=== PATIENT | female | born 1940 | race Caucasian/White ===

== ENCOUNTER 2017-11-08 11:54 | Emergency (ER) | payer MEDICARE, BC ==
[~2017-11-08] VITALS: Ht 167.6 cm; Wt 77.6 kg
[~2017-11-08 11:54] MED LIST: BIOTIN PO; CALTRATE 600 W1 EACH PO; CENTRUM SILVER1 EAC4 PO; CYMBALTA60 MG PO; LEFLUNOMIDE10 MG PO; LEVOTHYROXINE50 MCG PO; LORAZEPAM0.5 MG PO; MS CONTIN30 MG; MYRBETRIQ50 MG PO; NEXIUM40 MG PO; OCUVITE TABLET1 EAC1 PO; ORENCIA125 MG/1 M; PREMARIN42.5 GM VG; RESTASIS1 EACH OU; XARELTO20 MG PO
== END 2017-11-08 13:32 | disposition home or self-care (01) ==
LOC: FSED 11:54
DX: N30.90 Cystitis, unspecified without hematuria (principal); E03.9 Hypothyroidism, unspecified; R03.0 Elevated blood-pressure reading, without diagnosis of hypertension; E78.5 Hyperlipidemia, unspecified
CPT/HCPCS: 81003; 87086; 87186; 99283

== ENCOUNTER 2017-12-16 13:32 | Emergency (ER) | payer MEDICARE, BC ==
[~2017-12-16] VITALS: Ht 167.6 cm; Wt 90.7 kg
[2017-12-16] MEDS ORDERED: SERTRALINE HCL50 MG PO (14:32)
[2017-12-16] MEDS ORDERED: LIPITOR20 MG (14:35)
[2017-12-16] MEDS ORDERED: MELOXICAM7.5 MG PO (14:36)
[2017-12-16] MEDS ORDERED: ALENDRONATE SOD70 MG (14:37)
[2017-12-16] MEDS ORDERED: LEFLUNOMIDE10 MG (14:38)
[2017-12-16] MEDS ORDERED: NORCO 10-325 T1 EACH (14:39)
[2017-12-16] MEDS ORDERED: ENOXAPARIN40 MG/0.4 SC (14:40)
[2017-12-16] MEDS ORDERED: GABAPENTIN300 MG PO (14:40)
[2017-12-16 15:39] VITALS: BP 142/82
== END 2017-12-16 15:40 | disposition home or self-care (01) ==
LOC: FSED 13:32
DX: R30.0 Dysuria (principal); E03.1 Congenital hypothyroidism without goiter; F03.90 Unspecified dementia, unspecified severity, without behavioral disturbance, psychotic disturbance, mood disturbance, and anxiety
CPT/HCPCS: 81003; 82553; 84484; 85025; 93005; 99282

== ENCOUNTER 2018-02-24 13:08 | Emergency (ER) | payer MEDICARE, BC ==
[~2018-02-24] VITALS: Ht 167.6 cm; Wt 90.7 kg
[~2018-02-24 13:08] MED LIST changes: +ALENDRONATE SOD70 MG; +ENOXAPARIN40 MG/0.4 SC; +GABAPENTIN300 MG PO; +LEFLUNOMIDE10 MG; +LIPITOR20 MG; +MELOXICAM7.5 MG PO; +NORCO 10-325 T1 EACH; +SERTRALINE HCL50 MG PO
[2018-02-24 14:13] VITALS: BP 168/73
== END 2018-02-24 14:16 | disposition home or self-care (01) ==
LOC: FSED 13:08
DX: N76.0 Acute vaginitis (principal)
CPT/HCPCS: 99283

== ENCOUNTER 2018-03-09 14:04 | Emergency (ER) | payer MEDICARE, BC | END 2018-03-09 16:14 | disposition short-term general hospital (02) | LOC: ER 14:04 | DX: R50.9 Fever, unspecified (principal) ==

== ENCOUNTER 2021-04-12 09:29 | Emergency (ER) | payer MEDICARE, BC ==
[~2021-04-12] VITALS: Ht 167.6 cm; Wt 72.6 kg
[2021-04-12] MEDS ORDERED: CEFDINIR300 MG PO (10:21)
[2021-04-12] MEDS ORDERED: CEFTRIAXONE 1 GM VIAL IM ONE (10:30)
[2021-04-12] MEDS ORDERED: LIDOCAINE HCL 1% LOCAL INJ 20 ML VIAL ONE (10:36)
[2021-04-12] MEDS ORDERED: CEFTRIAXONE 1 GM VIAL ONE (10:36)
== END 2021-04-12 10:47 | disposition home or self-care (01) ==
LOC: FSED 09:33
DX: N39.0 Urinary tract infection, site not specified (principal); R82.71 Bacteriuria; I50.9 Heart failure, unspecified; E78.5 Hyperlipidemia, unspecified; K21.9 Gastro-esophageal reflux disease without esophagitis; E03.9 Hypothyroidism, unspecified
CPT/HCPCS: 81003; 99283; J0696; J2001

== ENCOUNTER 2021-07-15 12:46 | Inpatient (IN) | payer MEDICARE, BC ==
[~2021-07-15] VITALS: Ht 167.6 cm; Wt 75.7 kg
[~2021-07-15 12:46] MED LIST changes: +CEFDINIR300 MG PO
[2021-07-15] MEDS ORDERED: METOPROLOL TARTRATE INJ 1 MG/ML VIAL ONE (13:11)
[2021-07-15] MEDS ORDERED: SODIUM CHLORIDE 0.9% 1000ML 1,000 ML ONE (13:11)
[2021-07-15] MEDS ORDERED: DEXAMETHASONE SOD PHOS 10 MG/1 ML VIAL ONE (13:14)
[2021-07-15] MEDS ORDERED: METOPROLOL TARTRATE INJ 1 MG/ML VIAL IV ONE ×3 (13:15→14:45)
[2021-07-15] MEDS ORDERED: SODIUM CHLORIDE 0.9% 1000ML 1,000 ML IV ONE ×2 (13:15→14:15)
[2021-07-15] MEDS ORDERED: METOPROLOL TART50 MG PO (13:17)
[2021-07-15] MEDS ORDERED: MINOCYCLINE HCL50 MG PO (13:17)
[2021-07-15 13:18] LABS: BASOPHILS % 0.5 % (0.0-1.0); EOSINOPHILS # (AUTO) 0.1 (0.0-0.4); EOSINOPHILS % 1.3 % (0.0-6.0); HEMATOCRIT 43.8 % (34.2-44.1); HEMOGLOBIN 14.7 g/dL (12.0-16.0); LYMPHOCYTES % 11.2 % (18.0-39.1); MEAN CORPUSCULAR HEMOGLOBIN 33.9 pg (28-32); MEAN CORPUSCULAR HGB CONC 33.6 g/dL (31-35); MEAN CORPUSCULAR VOLUME 100.9 fL (81-99); MONOCYTES # (AUTO) 0.7 (0.2-0.8); MONOCYTES % 7.9 % (4.4-11.3); NEUTROPHILS # (AUTO) 6.9 (2.1-6.9); NEUTROPHILS % 78.4 % (38.7-80.0); PLATELET COUNT 148 x10e3/uL (140-360); RED BLOOD COUNT 4.34 x10e6/uL (3.6-5.1); RED CELL DISTRIBUTION WIDTH 17.4 % (11.7-14.4)
[2021-07-15 13:25] LABS: INR 1.35; PROTHROMBIN TIME 17.6 seconds (11.9-14.5)
[2021-07-15 13:26] LABS: PARTIAL THROMBOPLASTIN TIME 35.3 seconds (23.8-35.5)
[2021-07-15 13:40] LABS: ALBUMIN 2.4 g/dL (3.5-5.0); ALBUMIN/GLOBULIN RATIO 0.7 (0.8-2.0); ANION GAP 17.8 mmol/L (8-16); CALCIUM 9.1 mg/dL (8.4-10.2); CREATININE, SERUM 1.51 mg/dL (0.57-1.11); POTASSIUM 3.8 mmol/L (3.5-5.1)
[2021-07-15 13:46] LABS: CREATINE KINASE MB 3.2 ng/mL (0-5.0)
[2021-07-15] MEDS ORDERED: PIPERACILLIN/TAZOBACTAM 3.375 GM in SODIUM CHLORIDE 0.9% 50ML 50 ML IV ONE (14:00)
[2021-07-15 14:20] LABS: B-TYPE NATRIURETIC PEPTIDE2 418.1 pg/mL (0-100)
[2021-07-15 14:35] LABS: CLARITY,URINE SL CLOUDY (CLEAR); COLOR,URINE AMBER (YELLOW)
[2021-07-15 14:36] LABS: KETONES,URINE 1+ (NEGATIVE); LEUKOCYTE ESTERASE ,URINE NEGATIVE (NEGATIVE); NITRITE,URINE NEGATIVE (NEGATIVE); PROTEIN,URINE DIPSTICK 1+ (NEGATIVE); URINE UROBILINOGEN 1 mg/dL (0.2 - 1)
[2021-07-15 14:46] LABS: BACTERIA,URINE RARE /HPF; RBC,URINE 21-50 /HPF (0-5)
[2021-07-15] MEDS ORDERED: ASPIRIN 81 MG CHEW TAB PO ONE (15:45)
[2021-07-15] MEDS: SODIUM CHLORIDE 0.9% 1000ML 1,000 ML IV SCH (17:00)
[2021-07-15] MEDS: PIPERACILLIN/TAZOBACTAM 3.375 GM in SODIUM CHLORIDE 0.9% 50ML 50 ML IV SCH (17:46)
[2021-07-15] MEDS ORDERED: ENOXAPARIN SODIUM INJ 100 MG/ML SYR SC SCH (18:45)
[2021-07-15 21:16] LABS: CREATINE KINASE MB 2.9 ng/mL (0-5.0)
[2021-07-15 21:27] VITALS: BP 113/89
[2021-07-15] MEDS: METOPROLOL TARTRATE INJ 1 MG/ML VIAL IV SCH (21:56)
[2021-07-15 22:10] VITALS: BP 113/89
[2021-07-15 23:40] VITALS: BP 113/89
[2021-07-15] MEDS ORDERED: LEVOTHYROXINE150 MCG PO (23:45)
[2021-07-15] MEDS ORDERED: MEMANTINE HCL10 MG PO (23:45)
[2021-07-15] MEDS ORDERED: ELIQUIS2.5 MG PO (23:45)
[2021-07-16] VITALS (10 sets, daily range): BP systolic 99–124; BP diastolic 62–87
[2021-07-16] MEDS ORDERED: TRAZODONE HCL100 MG PO (00:40)
[2021-07-16] MEDS: PIPERACILLIN/TAZOBACTAM 3.375 GM in SODIUM CHLORIDE 0.9% 50ML 50 ML IV SCH ×4 (01:54→18:00)
[2021-07-16] MEDS: SODIUM CHLORIDE 0.9% 1000ML 1,000 ML IV SCH ×2 (01:54→07:45)
[2021-07-16 05:50] LABS: BASOPHILS % 0.5 % (0.0-1.0); EOSINOPHILS # (AUTO) 0.2 (0.0-0.4); EOSINOPHILS % 2.2 % (0.0-6.0); HEMATOCRIT 41.1 % (34.2-44.1); HEMOGLOBIN 13.9 g/dL (12.0-16.0); LYMPHOCYTES % 11.5 % (18.0-39.1); MEAN CORPUSCULAR HGB CONC 33.8 g/dL (31-35); MEAN CORPUSCULAR VOLUME 100.5 fL (81-99); MONOCYTES # (AUTO) 0.7 (0.2-0.8); MONOCYTES % 8.7 % (4.4-11.3); NEUTROPHILS # (AUTO) 6.5 (2.1-6.9); NEUTROPHILS % 76.6 % (38.7-80.0); PLATELET COUNT 145 x10e3/uL (140-360); RED BLOOD COUNT 4.09 x10e6/uL (3.6-5.1); RED CELL DISTRIBUTION WIDTH 17.2 % (11.7-14.4)
[2021-07-16] MEDS ORDERED: TRAZODONE HCL 50 MG TAB PO PRN (06:15)
[2021-07-16 06:27] LABS: POTASSIUM 3.8 mmol/L (3.5-5.1)
[2021-07-16 06:28] LABS: ALBUMIN 2.1 g/dL (3.5-5.0); ALBUMIN/GLOBULIN RATIO 0.6 (0.8-2.0); ANION GAP 14.8 mmol/L (8-16); CALCIUM 8.6 mg/dL (8.4-10.2); CREATININE, SERUM 1.37 mg/dL (0.57-1.11)
[2021-07-16] MEDS: LEVOTHYROXINE SODIUM 50 MCG TAB PO SCH (06:36)
[2021-07-16] MEDS ORDERED: METOPROLOL TARTRATE INJ 1 MG/ML VIAL IV PRN (06:45)
[2021-07-16] MEDS ORDERED: METOPROLOL TARTRATE INJ 1 MG/ML VIAL IV ONE ×2 (07:15→17:00)
[2021-07-16 07:17] LABS: CREATINE KINASE MB 2.5 ng/mL (0-5.0)
[2021-07-16] MEDS ORDERED: METOPROLOL TARTRATE 50 MG TAB PO SCH ×2 (09:00→17:00)
[2021-07-16] MEDS: ASPIRIN 81 MG ENTERIC COATED PO SCH (09:00)
[2021-07-16] MEDS: MEMANTINE 10 MG TAB PO SCH (09:00)
[2021-07-16] MEDS: METOPROLOL TARTRATE INJ 1 MG/ML VIAL IV SCH (09:00)
[2021-07-16] MEDS ORDERED: SUCCINYLCHOLINE CHLORIDE 20 MG/ML 10ML VIAL ONE (13:12)
[2021-07-16] MEDS ORDERED: DEXAMETHASONE SOD PHOS INJ 4 MG/ML SDV ONE (13:12)
[2021-07-16] MEDS ORDERED: POVIDONE IODINE 0.05% 0.05 % ML PO ONE (13:12)
[2021-07-16] MEDS ORDERED: ONDANSETRON HCL INJ 2MG/ML 2ML 2 MG/ML VIAL ONE ×2 (13:12→14:49)
[2021-07-16] MEDS ORDERED: SEVOFLURANE INHAL SOLN 250 ML PEN BTL ONE (13:12)
[2021-07-16] MEDS ORDERED: PHENYLEPHRINE HCL 1% 10 MG/ML VIAL ONE (13:12)
[2021-07-16] MEDS ORDERED: EPHEDRINE SULFATE INJ 50 MG/ML VIAL ONE (13:12)
[2021-07-16] MEDS ORDERED: PROPOFOL IV EMULSION 10 MG/ML 20 ML VIAL ONE (13:12)
[2021-07-16] MEDS ORDERED: LIDOCAINE HCL 2% LOCAL INJ 5 ML SDV VIAL INJ ONE (13:12)
[2021-07-16] MEDS ORDERED: IOPAMIDOL 300MG/ML 50ML INFUS..BTL IV ONE (13:41)
[2021-07-16] MEDS ORDERED: BELLADONNA/OPIUM 30 MG SUPP RC ONE (13:41)
[2021-07-16] MEDS ORDERED: FENTANYL CITRATE/PF 100MCG/2 ML INJ ONE (13:42)
[2021-07-16] MEDS: METOPROLOL TARTRATE 50 MG TAB PO SCH (17:00)
[2021-07-16] MEDS: METOPROLOL TARTRATE INJ 1 MG/ML VIAL IV PRN (21:57)
[2021-07-16] MEDS ORDERED: PROMETHAZINE 12.5MG/ NACL 0.9% 12.5 MG/50 ML BAG IV PRN (23:30)
[2021-07-16] MEDS ORDERED: PROMETHAZINE 12.5MG/ NACL 0.9% 50 ML ONE (23:34)
[2021-07-17] VITALS (7 sets, daily range): BP systolic 94–126; BP diastolic 56–85
[2021-07-17] MEDS ORDERED: DIGOXIN INJ 0.25 MG/ML 2 ML AMP IV ONE (00:15)
[2021-07-17] MEDS: METOPROLOL TARTRATE INJ 1 MG/ML VIAL IV PRN (02:00)
[2021-07-17] MEDS: SODIUM CHLORIDE 0.9% 1000ML 1,000 ML IV SCH ×2 (04:33→10:09)
[2021-07-17] MEDS: LEVOTHYROXINE SODIUM 50 MCG TAB PO SCH (05:46)
[2021-07-17] MEDS: PIPERACILLIN/TAZOBACTAM 3.375 GM in SODIUM CHLORIDE 0.9% 50ML 50 ML IV SCH ×5 (06:34→17:26)
[2021-07-17] MEDS: MEMANTINE 10 MG TAB PO SCH (09:00)
[2021-07-17] MEDS: METOPROLOL TARTRATE 50 MG TAB PO SCH ×2 (09:00→17:00)
[2021-07-17] MEDS: ASPIRIN 81 MG ENTERIC COATED PO SCH (09:00)
[2021-07-17 09:09] LABS: BASOPHILS % 0.2 % (0.0-1.0); HEMATOCRIT 42.1 % (34.2-44.1); HEMOGLOBIN 13.7 g/dL (12.0-16.0); LYMPHOCYTES % 8.4 % (18.0-39.1); MEAN CORPUSCULAR HEMOGLOBIN 33.8 pg (28-32); MEAN CORPUSCULAR HGB CONC 32.5 g/dL (31-35); MONOCYTES # (AUTO) 0.9 (0.2-0.8); MONOCYTES % 7.9 % (4.4-11.3); NEUTROPHILS # (AUTO) 9.7 (2.1-6.9); NEUTROPHILS % 82.9 % (38.7-80.0); PLATELET COUNT 158 x10e3/uL (140-360); RED BLOOD COUNT 4.05 x10e6/uL (3.6-5.1)
[2021-07-17 09:58] LABS: ALBUMIN 2.2 g/dL (3.5-5.0); ALBUMIN/GLOBULIN RATIO 0.6 (0.8-2.0); ANION GAP 20.1 mmol/L (8-16); CALCIUM 8.4 mg/dL (8.4-10.2); POTASSIUM 4.1 mmol/L (3.5-5.1)
[2021-07-17] MEDS: METOPROLOL TARTRATE INJ 1 MG/ML VIAL IV SCH ×4 (10:30→22:00)
[2021-07-17] MEDS ORDERED: Vancomycin IV 1 GM in SODIUM CHLORIDE 0.9% 250ML 250 ML IV ONE (21:15)
[2021-07-18] MEDS: PIPERACILLIN/TAZOBACTAM 3.375 GM in SODIUM CHLORIDE 0.9% 50ML 50 ML IV SCH ×2 (00:09→05:10)
[2021-07-18 01:02] VITALS: BP 102/73
[2021-07-18] MEDS: METOPROLOL TARTRATE INJ 1 MG/ML VIAL IV SCH ×2 (02:00→06:00)
[2021-07-18] MEDS: SODIUM CHLORIDE 0.9% 1000ML 1,000 ML IV SCH (03:36)
[2021-07-18] MEDS: LEVOTHYROXINE SODIUM 50 MCG TAB PO SCH (05:10)
[2021-07-18 05:33] VITALS: BP 108/92
[2021-07-18 09:00] VITALS: BP 107/76
[2021-07-18] MEDS: ASPIRIN 81 MG ENTERIC COATED PO SCH (09:00)
[2021-07-18] MEDS: METOPROLOL TARTRATE 50 MG TAB PO SCH (09:00)
[2021-07-18] MEDS: MEMANTINE 10 MG TAB PO SCH (09:56)
[2021-07-18 09:59] VITALS: BP 107/76
== END 2021-07-18 11:43 | disposition hospice, home (50) | DRG 853 ==
LOC: ER 13:00 → ERHOLD 15:48 → MED/SURG2 21:45
PROVIDERS: ADMIT Internal Medicine; ATTEND Internal Medicine
PROC: BT141ZZ Fluoroscopy of Kidneys, Ureters and Bladder using Low Osmolar Contrast (ICD-10-PCS; 2021-07-16)
PROC: 0T788DZ Dilation of Bilateral Ureters with Intraluminal Device, Via Natural or Artificial Opening Endoscopic (ICD-10-PCS; principal; 2021-07-16 13:00)
DX: A41.9 Sepsis, unspecified organism (principal); I21.A1 Myocardial infarction type 2; J90 Pleural effusion, not elsewhere classified; N17.9 Acute kidney failure, unspecified; N13.6 Pyonephrosis; E87.2 Acidosis; E87.1 Hypo-osmolality and hyponatremia; R18.8 Other ascites; M48.55XA Collapsed vertebra, not elsewhere classified, thoracolumbar region, initial encounter for fracture; C78.6 Secondary malignant neoplasm of retroperitoneum and peritoneum; C78.02 Secondary malignant neoplasm of left lung; C78.01 Secondary malignant neoplasm of right lung; I48.0 Paroxysmal atrial fibrillation; R19.00 Intra-abdominal and pelvic swelling, mass and lump, unspecified site; E86.0 Dehydration; Z88.8 Allergy status to other drugs, medicaments and biological substances; Z91.041 Radiographic dye allergy status; K21.9 Gastro-esophageal reflux disease without esophagitis; R16.0 Hepatomegaly, not elsewhere classified; C76.3 Malignant neoplasm of pelvis; E03.9 Hypothyroidism, unspecified; G30.9 Alzheimer's disease, unspecified; F02.80 Dementia in other diseases classified elsewhere, unspecified severity, without behavioral disturbance, psychotic disturbance, mood disturbance, and anxiety; I69.320 Aphasia following cerebral infarction; Z74.01 Bed confinement status; Z20.822 Contact with and (suspected) exposure to COVID-19; M79.7 Fibromyalgia; I50.9 Heart failure, unspecified
CPT/HCPCS: 36415; 71045; 71250; 74176; 74420; 80053; 81001; 82140; 82550; 82553; 83605; 83690; 83880; 84484; 85025; 85610; 85730; 86304; 87040; 87071; 87086; 87186; 87205; 93005; 93306; 94799; 96361; 99251; 99284; C1758; C1769; C2617; J0330; J1100; J1160; J1650; J2001; J2370; J2405; J2543; J2550; J3010; J3370; J7030; J7050; U0002